=== PATIENT | male | born 1970 | race African-American/Black ===

== ENCOUNTER → 2019-05-02 | Outpatient (CLI) | payer BC ==
[~2019-05-02] MED LIST: ALEVE220 M1 PO; ASPIRIN PO; CARDIZEM CD360 MG PO; CARVEDILOL12.5 MG PO; COZAAR 25 MG TA25 M2 PO; CPAP; FUROSEMIDE; INDOMETHACIN 5050 M1; INDOMETHACIN 5050 MG PO; LANOXIN 0.120.125 M3 PO; LASIX 40 MG TAB40 M2 PO; LOPRESSOR; NORCO 5-325 TA1 EACH PO; VENTOLIN17 GM INH; ZPAK PO
== END ==
LOC: RAD 12:16
DX: M17.0 Bilateral primary osteoarthritis of knee (principal); M25.762 Osteophyte, left knee; M25.761 Osteophyte, right knee; M11.262 Other chondrocalcinosis, left knee; M11.261 Other chondrocalcinosis, right knee

== ENCOUNTER → 2020-02-22 | Outpatient (CLI) | payer BC | LOC: LAB 10:14 | PROVIDERS: ATTEND Family Medicine | DX: Z03.818 Encounter for observation for suspected exposure to other biological agents ruled out (principal) ==

== ENCOUNTER → 2021-03-05 | Outpatient (CLI) | payer BC | LOC: ULTRA 12:18 | PROVIDERS: ATTEND Nurse Practitioner | DX: M79.662 Pain in left lower leg (principal); M79.89 Other specified soft tissue disorders ==